=== PATIENT | female | born 1970 | race Caucasian/White ===

== ENCOUNTER 2017-09-19 13:59 | Emergency (ER) | payer OTHER ==
[2017-09-19 14:10] VITALS: BP 142/81
[2017-09-19] MEDS ORDERED: ONDANSETRON 4 MG TAB.RAPDIS PO ONE (15:11)
[2017-09-19] MEDS ORDERED: IBUPROFEN 800 MG TABLET PO ONE (15:11)
[2017-09-19] MEDS ORDERED: HYDROCODONE/ACETAMINOPHEN 10-325 MG TABLET PO ONE (15:11)
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
[2017-09-19] MEDS ORDERED: TRAMADOL HCL 50 MG TABLET PO ONE (15:12)
== END 2017-09-19 15:36 | disposition home or self-care (01) ==
LOC: ER 13:59
DX: S29.012A Strain of muscle and tendon of back wall of thorax, initial encounter (principal); S20.212A Contusion of left front wall of thorax, initial encounter; R20.2 Paresthesia of skin; V43.52XA Car driver injured in collision with other type car in traffic accident, initial encounter
CPT/HCPCS: 99283; S0119